=== PATIENT | male | born 1965 | race Caucasian/White ===

== ENCOUNTER 2025-02-22 10:21 | Emergency (ER) | payer SELFPAY | END 2025-02-22 11:17 | disposition home or self-care (01) | LOC: NAV ERS 10:21 | DX: S39.012A Strain of muscle, fascia and tendon of lower back, initial encounter (principal); F17.210 Nicotine dependence, cigarettes, uncomplicated; X58.XXXA Exposure to other specified factors, initial encounter; Y93.B9 Activity, other involving muscle strengthening exercises | CPT/HCPCS: 99283; J1010; J1885 ==